=== PATIENT | male | born 1930 | race Caucasian/White ===

== ENCOUNTER 2018-03-01 22:58 | Inpatient (IN) | payer MEDICARE ==
[~2018-03-01] VITALS: Ht 175.3 cm; Wt 81.3 kg
[2018-03-01 23:35] LABS: BASOPHILS % (AUTO) 0.3 % (0.0-2.0); EOSINOPHILS # (AUTO) 0.1 K/uL (0.0-0.7); EOSINOPHILS % (AUTO) 0.9 % (0.0-7.0); HEMATOCRIT 38.2 % (36.7-47.1); HEMOGLOBIN 13.5 g/dL (12.5-16.3); LYMPHOCYTES # (AUTO) 1.6 K/uL (20.0-40.0); LYMPHOCYTES % (AUTO) 24.8 % (20.5-51.5); MEAN CORPUSCULAR HEMOGLOBIN 31.6 uug (23.8-33.4); MEAN CORPUSCULAR HGB CONC 35 g/dL (32.5-36.3); MEAN CORPUSCULAR VOLUME 89.7 fL (73.0-96.2); MONOCYTES # (AUTO) 0.4 K/uL (2.0-10.0); MONOCYTES % (AUTO) 6.6 % (0.0-11.0); NEUTROPHILS # (AUTO) 4.3 K/uL (1.8-8.9); NEUTROPHILS % (AUTO) 67.4 % (38.5-71.5); PLATELET COUNT (AUTO) 156 K/uL (152-348); RED BLOOD CELL COUNT(AUTO) 4.26 MIL/uL (4.06-5.63); WHITE BLOOD COUNT (AUTO) 6.4 K/uL (3.6-10.2)
[2018-03-02] MEDS ORDERED: METF500S7 PO
[2018-03-02] MEDS ORDERED: CARV3.122 PO
[2018-03-02] MEDS ORDERED: CYAN250014 PO
[2018-03-02] MEDS ORDERED: aricept PO
[2018-03-02] MEDS ORDERED: ASCO500C18 PO
[2018-03-02] MEDS ORDERED: IRON18TA PO
[2018-03-02] MEDS ORDERED: MELA3TAB PO
[2018-03-02] MEDS ORDERED: MULT-1196 PO
[2018-03-02] MEDS ORDERED: DUTA0.5C PO
[2018-03-02] MEDS ORDERED: DOCU100C36 PO
[2018-03-02] MEDS ORDERED: POLY17PO4 PO
[2018-03-02] MEDS ORDERED: APIX5TAB PO
[2018-03-02] MEDS ORDERED: UBID50TA3 PO
[2018-03-02] MEDS ORDERED: MECL12.582 PO
[2018-03-02] MEDS ORDERED: VIT1CAPS27 PO
[2018-03-02] MEDS ORDERED: TRAZ-214 PO
[2018-03-02] MEDS ORDERED: CRAN250C PO
[2018-03-02] MEDS ORDERED: ATOR40TA PO
[2018-03-02 00:04] LABS: CARBON DIOXIDE 34 mmol/L (21-32); CHLORIDE 104 mmol/L (98-107); CREATININE 1.2 mg/dL (0.6-1.3); GLUCOSE 130 mg/dL (74-106); POTASSIUM 4.1 mmol/L (3.5-5.1); UREA NITROGEN, BLOOD 26 mg/dL (7-18)
[2018-03-02 00:10] LABS: ALANINE AMINOTRANSFERASE 39 U/L (16-63); ALKALINE PHOSPHATASE 112 U/L (50-136); ASPARTATE AMINOTRANSFERASE 25 U/L (15-37); BILIRUBIN,DIRECT 0.1 mg/dL (0.0-0.2); BILIRUBIN,TOTAL 0.5 mg/dL (0.2-1.0); TOTAL PROTEIN, SERUM 6.3 g/dL (6.4-8.2)
[2018-03-02] MEDS ORDERED: HYDROCODONE/APAP 5-325MG TABLET PO PRN (01:15)
[2018-03-02] MEDS ORDERED: MAGNESIUM HYDROXIDE 30 ML LIQUID UDC PO PRN (01:15)
[2018-03-02] MEDS ORDERED: ONDANSETRON 4 MG/2 ML VIAL IV PRN (01:15)
--- NOTE | 2018-03-02 03:06 | NUR ---
Pt. admitted to TELE , under care of Dr. LIVINGSTON Belongs List completed.
--- NOTE | 2018-03-02 03:30 | NUR ---
[facility] UNDER THE CARE OF DR. LIVINGSTON DX:NSTEMI.CAREGIVER AT BEDSIDE. PT SHOWS NO SIGNS OF DISTRESS. BELONGING LIST DONE. ADMISSION PROCESS AND CARE PLAN INITIATED. RETIREMENT ASSESSMENT DONE.TOOK A PICTURE OF THE RIGHT ARM WITH REDNESS, EXCORIATION AND BRUISE. CALL LIGHT WITHIN REACH. BED ALARM ON AND IN LOW POSITION. SIDE RAILS UP X2. SAFETY AND COMFORT PROVIDED. WILL CONTINUE TO MONITOR.
[2018-03-02 04:00] VITALS: BP 146/67
--- NOTE | 2018-03-02 06:33 | NUR ---
PT SLEPT THROUGHOUT THE SHIFT. PT SHOWS NO SIGNS OF DISTRESS. IV INTACT. PRESCRIBED MEDICATION GIVEN AND PT TOLERATED IT WELL. CALL LIGHT WITHIN REACH. SAFETY AND COMFORT PROVIDED. CAREGIVER AT BEDSIDE. WILL CONTINUE TO MONITOR.
--- NOTE | 2018-03-02 07:25 | NUR ---
Received patient in bed, awake, alert and oriented x1, confused. Denies chest pain or SOB at this time. O2 on at 2LPM via NC. NSR on monitor. Caregiver at bedside. IV site on LAC patent. Fall precaution in place. Will continue to monitor
[2018-03-02] MEDS: MECLIZINE HCL 12.5 MG TABLET PO SCH (08:56)
[2018-03-02] MEDS: DOCUSATE SODIUM 100 MG CAPSULE PO SCH (08:56)
[2018-03-02] MEDS: DUTASTERIDE 0.5 MG CAPSULE PO SCH (08:56)
[2018-03-02] MEDS ORDERED: Medication Not On Formulary EA (Multivit-Min/FA/Lycopen/Lutein (Centrum Silver Men Table PO SCH (09:00)
[2018-03-02] MEDS ORDERED: CYANOCOBALAMIN 2500 MCG PO SCH (09:00)
[2018-03-02] MEDS ORDERED: Medication Not On Formulary EA (Cranberry Extract (Cranberry) 250 MG) PO SCH (09:00)
[2018-03-02] MEDS: FERROUS SULFATE 325 MG TABEC PO SCH (09:00)
[2018-03-02] MEDS ORDERED: CARVEDILOL 3.125 MG TABLET PO SCH ×2 (09:00→17:00)
[2018-03-02] MEDS ORDERED: IRON 65 MG PO SCH (09:00)
[2018-03-02] MEDS ORDERED: Medication Not On Formulary EA (Ascorbic Acid (Vitamin C) 1,000 MG) PO SCH (09:00)
[2018-03-02] MEDS: BETA CAROTENE/VIT C & E/MIN TABLET PO SCH (09:00)
[2018-03-02] MEDS ORDERED: UBIDECARENONE 100 MG PO SCH (09:00)
[2018-03-02] MEDS: CYANOCOBALAMIN 1,000 MCG TABLET PO SCH (09:00)
[2018-03-02] MEDS: ASCORBIC ACID 500 MG TABLET PO SCH (09:00)
[2018-03-02] MEDS ORDERED: Medication Not On Formulary EA (Vit C/Vite Ac/Lut/Copper/Znox (Preservision Lutein Softg PO SCH (09:00)
[2018-03-02] MEDS: MULTIVIT, IRON, MIN NO. 8, FA TABLET PO SCH (09:00)
[2018-03-02] MEDS: MIRALAX 17 GM POWD.PACK PO SCH (09:01)
[2018-03-02] MEDS ORDERED: HEPARIN/D5W DRIP 500 ML IV PRN (09:15)
[2018-03-02] MEDS ORDERED: HEPARIN SODIUM,PORCINE 5,000 UNITS/ML VIAL IVP ONE (10:45)
[2018-03-02] MEDS: ASPIRIN EC 81 MG TABLET.DR PO SCH (10:54)
--- NOTE | 2018-03-02 11:00 | NUR ---
IV Heparin Bolus given at this time. Family at bedside, health education given. Will continue to monitor
[2018-03-02 11:01] VITALS: BP 154/70
--- NOTE | 2018-03-02 11:15 | NUR ---
IV Heparin at 1222.5 units/hr started at this time. Will continue to monitor
--- NOTE | 2018-03-02 13:30 | NUR ---
Dr. Rogers here to see patient, family at bedside. All questions answered.
--- NOTE | 2018-03-02 14:15 | NUR ---
IV Heparin discontinued by Dr. Rogers at this time. Will treat patient medically, continue with Flor
[2018-03-02 15:34] VITALS: BP 157/78
[2018-03-02] MEDS: ACETAMINOPHEN 325 MG TABLET PO PRN (15:45)
--- NOTE | 2018-03-02 16:09 | NUR ---
Patient noted with Temp of 100.8. Cooling measures provided, Tylenol 650 mg PO given. Vitals are otherwise WNL. NSR on monitor. Call placed to Dr. Khan, new orders received. Will continue to monitor
[2018-03-02] MEDS ORDERED: HEPARIN SODIUM,PORCINE 5,000 UNITS/ML VIAL IV PRN (17:00)
[2018-03-02 17:37] LABS: *BILIRUBIN,URIN NEGATIVE (NEGATIVE); *BLOOD, URINE 3+ (NEGATIVE); *CLARITY,URINE CLOUDY (CLEAR); *KETONES,URINE NEGATIVE (NEGATIVE); *PROTEIN,URINE 3+ (NEGATIVE); *UROBILINOGEN,URINE 0.2 E.U./dl (NORMAL); NITRITE, URINE NEGATIVE (NEGATIVE); UGLUCOSE NEGATIVE (NEGATIVE)
[2018-03-02] MEDS: CARVEDILOL 6.25 MG TABLET PO SCH (18:06)
[2018-03-02 18:17] LABS: *COLOR,URINE Brown (YELLOW)
[2018-03-02 18:18] LABS: LEUKOCYTE ESTERASE ,URINE TRACE (NEGATIVE)
[2018-03-02 18:20] LABS: RBC,URINE TNTC /HPF (0-3)
--- NOTE | 2018-03-02 18:23 | NUR ---
End of shift note: Patient is alert and oriented x1, confused. Denies chest pain or SOB at this time. NSR on monitor. IV site on LAC patent. Caregiver at bedside. Temp went down to 97.6. All needs attended and met. Will continue to monitor
--- NOTE | 2018-03-02 19:10 | NUR ---
RECEIVED PT AWAKE, ALERT, AND ORIENTEDX2. PT SHOWS NO SIGNS OF DISTRESS. CAREGIVER AT BEDSIDE.IV INTACT AND PATENT. CALL LIGHT WITHIN REACH. BED ALARM ON AND IN LOW POSITION. WILL CONTINUE TO MONITOR.
[2018-03-02 19:29] VITALS: BP 145/67
[2018-03-02] MEDS: TRAZODONE 100 MG TABLET PO SCH (20:09)
[2018-03-02] MEDS: MELATONIN 3 MG TABLET PO SCH (20:09)
[2018-03-02] MEDS: ATORVASTATIN 40 MG TABLET PO SCH (20:09)
[2018-03-02 23:56] VITALS: BP 107/89
[2018-03-03 03:28] VITALS: BP 157/67
[2018-03-03 06:15] LABS: BASOPHILS % (AUTO) 0.1 % (0.0-2.0); EOSINOPHILS # (AUTO) 0.2 K/uL (0.0-0.7); EOSINOPHILS % (AUTO) 1.9 % (0.0-7.0); HEMATOCRIT 38.5 % (36.7-47.1); HEMOGLOBIN 13.1 g/dL (12.5-16.3); LYMPHOCYTES # (AUTO) 1.1 K/uL (20.0-40.0); MEAN CORPUSCULAR HEMOGLOBIN 31.5 uug (23.8-33.4); MEAN CORPUSCULAR HGB CONC 34 g/dL (32.5-36.3); MEAN CORPUSCULAR VOLUME 92.2 fL (73.0-96.2); MONOCYTES # (AUTO) 0.6 K/uL (2.0-10.0); MONOCYTES % (AUTO) 6.3 % (0.0-11.0); NEUTROPHILS # (AUTO) 7.2 K/uL (1.8-8.9); NEUTROPHILS % (AUTO) 79.7 % (38.5-71.5); PLATELET COUNT (AUTO) 130 K/uL (152-348); RED BLOOD CELL COUNT(AUTO) 4.17 MIL/uL (4.06-5.63); WHITE BLOOD COUNT (AUTO) 9.1 K/uL (3.6-10.2)
--- NOTE | 2018-03-03 06:28 | NUR ---
PT SLEPT THROUGHOUT THE SHIFT..PT SHOWS NO SIGNS AND DISTRESS.IV INTACT AND PATENT.PRESCRIBED MEDICATION GIVEN AND PT TOLERATED IT WELL.CAREGIVER AT BEDSIDE.CALL LIGHT WITHIN REACH. SAFETY AND COMFORT PROVIDED. WILL CONTINUE TO MONITOR.
[2018-03-03 06:32] LABS: CARBON DIOXIDE 34 mmol/L (21-32); CHLORIDE 103 mmol/L (98-107); CHOLESTEROL 99 mg/dL (<200); CREATININE 1.1 mg/dL (0.6-1.3); GLUCOSE 150 mg/dL (74-106); HDL CHOLESTEROL 52 mg/dL (40-60); MAGNESIUM 1.8 mg/dL (1.8-2.4); TRIGLYCERIDES 72 MG/DL (30-150); UREA NITROGEN, BLOOD 21 mg/dL (7-18)
[2018-03-03] MEDS: CARVEDILOL 6.25 MG TABLET PO SCH ×2 (08:35→17:18)
[2018-03-03] MEDS: DOCUSATE SODIUM 100 MG CAPSULE PO SCH (08:36)
[2018-03-03] MEDS: FERROUS SULFATE 325 MG TABEC PO SCH (08:36)
[2018-03-03] MEDS: DUTASTERIDE 0.5 MG CAPSULE PO SCH (08:36)
[2018-03-03] MEDS: MECLIZINE HCL 12.5 MG TABLET PO SCH (08:36)
[2018-03-03] MEDS: ASPIRIN EC 81 MG TABLET.DR PO SCH (08:36)
[2018-03-03] MEDS: MULTIVIT, IRON, MIN NO. 8, FA TABLET PO SCH (08:37)
[2018-03-03] MEDS: BETA CAROTENE/VIT C & E/MIN TABLET PO SCH (08:37)
[2018-03-03] MEDS: ASCORBIC ACID 500 MG TABLET PO SCH (08:37)
[2018-03-03] MEDS: CYANOCOBALAMIN 1,000 MCG TABLET PO SCH (08:37)
[2018-03-03] MEDS: APIXABAN 5 MG TABLET PO SCH ×2 (08:43→17:19)
[2018-03-03] MEDS: MIRALAX 17 GM POWD.PACK PO SCH (08:44)
[2018-03-03 11:04] VITALS: BP 140/60
--- NOTE | 2018-03-03 11:40 | NUR ---
by bedside, caregiver by bedside. Pt is sleeping, arousable when spoken to. Caregiver shaved patient around 1100am, noted patient dozing off around that time.
--- NOTE | 2018-03-03 14:55 | NUR ---
PT, OT and ST evaluation ordered. Dx: NSTEMI aware
[2018-03-03 15:02] VITALS: BP 140/74
--- NOTE | 2018-03-03 15:20 | NUR ---
Per PT: confirmed pt was seen
--- NOTE | 2018-03-03 16:10 | NUR ---
orders: Neurologist consult
--- NOTE | 2018-03-03 16:11 | NUR ---
OT evaluation noted
--- NOTE | 2018-03-03 16:47 | NUR ---
SKY Hairston aware of Neuro consult, ordered CT-head. Dr. Florentino called new orders to cancel CT Head, acknowledge Neuro consult and will be done tomorrow morning
--- NOTE | 2018-03-03 19:10 | NUR ---
RECEIVED PT AWAKE, ALERT, ORIENTEDX2. PT SHOWS NO SIGNS OF DISTRESS. CAREGIVER AT BEDSIDE. IV INTACT. SAFETY AND COMFORT PROVIDED. WILL CONTINUE TO MONITOR.
[2018-03-03] MEDS: Z GUARD REMEDY PASTE 57 GM TUBE TOP PRN (19:13)
--- NOTE | 2018-03-03 19:25 | NUR ---
Caregiver by bedside throughout this shift. No immediate s/sx of SOB or distress. Pt has been compliant with nursing care and medications.
[2018-03-03 19:35] VITALS: BP 147/79
[2018-03-03] MEDS: ATORVASTATIN 40 MG TABLET PO SCH (20:31)
[2018-03-03] MEDS: TRAZODONE 100 MG TABLET PO SCH (20:31)
[2018-03-03] MEDS: MELATONIN 3 MG TABLET PO SCH (20:37)
[2018-03-04] VITALS (7 sets, daily range): BP systolic 125–165; BP diastolic 56–82
[2018-03-04] MEDS: ACETAMINOPHEN 325 MG TABLET PO PRN ×2 (00:28→20:34)
--- NOTE | 2018-03-04 00:54 | NUR ---
AT 0033H PT GOT 99.9 TEMP. COOLING MEASURES DONE AND GAVE TYLENOL TO PREVENT FEVER. CHARGE NURSE AWARE OF THE TEMP OF THE PT. PT SAFETY AND COMFORT PROVIDED. WILL CONTINUE TO MONITOR.
--- NOTE | 2018-03-04 02:20 | NUR ---
NOTIFIED DR. VERO DUARTE WHO WAS THE DOCTOR HEALTHCARE SCIENCE SPECIALIST REGARDING PT HAD AN EPISODE OF V-TACH 8 BEATS AND HEART RATE OF 115. CHARGE NURSE AWARE. ORDERED TO MONITOR THE PTS HEART RYTHM AND CALL HIM IF THERE'S ANOTHER IRREGULAR RYTHM. PT STABLE AND WITH NO ACUTRE DISTRESS. CAREGIVER ALSO OF THE PT ASKING FOR MELATONIN FOR PT BUT SINCE ITS PAST 2 AM ALREADY WE CAN'T GIVE ANY SLEEPING MEDICATION FOR PT.
--- NOTE | 2018-03-04 06:26 | NUR ---
PT SLEPT THROUGHOUT THE SHIFT. CAREGIVER AT BEDSIDE. PT AFEBRILE. PT SHOWS NO SIGNS OF DISTRESS. IV INTACT.PRESCRIBED MEDICATION GIVEN AND PT TOLERATED IT WELL. SAFETY AND COMFORT PROVIDED. WILL CONTINUE TO MONITOR. Addendum: 03/04/18 at 0627 by CORTNEY DENIS RN WRONG PT.
[2018-03-04 07:06] LABS: BASOPHILS % (AUTO) 0.2 % (0.0-2.0); EOSINOPHILS # (AUTO) 0.2 K/uL (0.0-0.7); EOSINOPHILS % (AUTO) 2.7 % (0.0-7.0); HEMATOCRIT 36.6 % (36.7-47.1); LYMPHOCYTES # (AUTO) 1.1 K/uL (20.0-40.0); LYMPHOCYTES % (AUTO) 14.3 % (20.5-51.5); MEAN CORPUSCULAR HGB CONC 36 g/dL (32.5-36.3); MEAN CORPUSCULAR VOLUME 89.9 fL (73.0-96.2); MONOCYTES # (AUTO) 0.7 K/uL (2.0-10.0); MONOCYTES % (AUTO) 8.3 % (0.0-11.0); NEUTROPHILS # (AUTO) 5.9 K/uL (1.8-8.9); NEUTROPHILS % (AUTO) 74.5 % (38.5-71.5); PLATELET COUNT (AUTO) 125 K/uL (152-348); RED BLOOD CELL COUNT(AUTO) 4.07 MIL/uL (4.06-5.63); WHITE BLOOD COUNT (AUTO) 7.9 K/uL (3.6-10.2)
[2018-03-04 07:19] LABS: CARBON DIOXIDE 34 mmol/L (21-32); CHLORIDE 103 mmol/L (98-107); GLUCOSE 150 mg/dL (74-106); PHOSPHOROUS 2.9 mg/dL (2.5-4.9); UREA NITROGEN, BLOOD 26 mg/dL (7-18)
--- NOTE | 2018-03-04 07:45 | NUR ---
Rec'd pt in bed awake, caregiver at bedside. No s/s of acute distress noted. S/P VTach x1 episode during noc shift. No further episode at this time. Tele monitor in place, SR at 64bpm. Per report, afebrile at 98.3. Plan is for d/c to ARU vs SNF. All safety precautions in place. Will continue to monitor for change.
[2018-03-04] MEDS ORDERED: CARVEDILOL 12.5 MG TABLET PO SCH ×2 (08:00→18:00)
[2018-03-04] MEDS ORDERED: CARVEDILOL 6.25 MG TABLET PO SCH (08:00)
[2018-03-04] MEDS: CYANOCOBALAMIN 1,000 MCG TABLET PO SCH (08:41)
[2018-03-04] MEDS: DUTASTERIDE 0.5 MG CAPSULE PO SCH (08:41)
[2018-03-04] MEDS: MECLIZINE HCL 12.5 MG TABLET PO SCH (08:41)
[2018-03-04] MEDS: ASCORBIC ACID 500 MG TABLET PO SCH (08:41)
[2018-03-04] MEDS: FERROUS SULFATE 325 MG TABEC PO SCH (08:41)
[2018-03-04] MEDS: MULTIVIT, IRON, MIN NO. 8, FA TABLET PO SCH (08:41)
[2018-03-04] MEDS: DOCUSATE SODIUM 100 MG CAPSULE PO SCH (08:41)
[2018-03-04] MEDS: ASPIRIN EC 81 MG TABLET.DR PO SCH (08:42)
[2018-03-04] MEDS: APIXABAN 5 MG TABLET PO SCH ×2 (08:43→18:21)
[2018-03-04] MEDS: BETA CAROTENE/VIT C & E/MIN TABLET PO SCH (08:44)
[2018-03-04] MEDS: MIRALAX 17 GM POWD.PACK PO SCH (08:44)
[2018-03-04] MEDS: CARVEDILOL 6.25 MG TABLET PO SCH ×2 (08:53→18:09)
[2018-03-04] MEDS: LISINOPRIL 10 MG TABLET PO SCH (08:53)
--- NOTE | 2018-03-04 09:30 | NUR ---
Pt c/o bilateral eye dryness. No redness/swelling/discharge noted. Relayed to SKY Ewing and obtained T.O for Artificial Tears 1 drop to each eye Q8hrs PRN eye dryness. T.O. read back and verified. Family made aware.
[2018-03-04] MEDS: POLYVINYL ALCOHOL OPHT DROPS 15 ML BOTTLE EACHEYE PRN (10:06)
--- NOTE | 2018-03-04 11:15 | NUR ---
Pt going to radiology dept for Heat CT as ordered for weakness. No s/s of acute distress noted. Caregiver at side.
--- NOTE | 2018-03-04 11:45 | NUR ---
Pt back from CT. No acute distress noted. In bed with eyes closed. All safety precautions in place. Caregiver at bedside.
--- NOTE | 2018-03-04 12:46 | NUR ---
Pt seen and evaluated by ST for upgrade to regular texture diet. Per ST, pt passed.
--- NOTE | 2018-03-04 14:49 | NUR ---
Relayed to Dr. Rogers pt's is requesting for him to update his Certified Surgical Tech/First Assistant Sonido De Oliveira at . Per , he will call him in a bit. and caregiver made aware.
--- NOTE | 2018-03-04 16:10 | NUR ---
Rec'd message from Dr. Rogers that he spoke with Dr. Danielle and updated him with patient's condition. and caregiver made aware.
--- NOTE | 2018-03-04 17:58 | NUR ---
Reported to Dr. Juarez pt with x2 episode of scant bleeding to left nostril. Caregiver not sure if pt scratched inside his nostril. Pt denies scratching. Last episode of nose bleed, BP 125/60. Each episode only lasting for 1-2 mins. Pt on Apixaban 5mg PO BID. Per Dr. Juarez, pt still ok to receive Apixaban as ordered.
--- NOTE | 2018-03-04 19:30 | NUR ---
Received patient in stable condition. No acute distress noted. Pertinent assessment completed. Vital signs within range. A/Ox1 with confusion. customs import specialist at the bedside 24 hours a day. Sinus Fran on tele monitor with HR of 55 to 71. Skin intact. Patient is non ambulatory with severe BLE weakness. Noted with left AC 20G IV site which is locked, patent, & flushing well. Bed in lowest position & locked. Call light within reach of patient. Will continue to monitor through shift.
[2018-03-04] MEDS: TRAZODONE 100 MG TABLET PO SCH (20:34)
[2018-03-04] MEDS: ATORVASTATIN 40 MG TABLET PO SCH (20:34)
[2018-03-04] MEDS: MELATONIN 3 MG TABLET PO SCH (20:35)
[2018-03-05 00:27] VITALS: BP 149/54
[2018-03-05 05:11] VITALS: BP 154/62
[2018-03-05 06:27] LABS: BASOPHILS % (AUTO) 0.7 % (0.0-2.0); EOSINOPHILS # (AUTO) 0.2 K/uL (0.0-0.7); EOSINOPHILS % (AUTO) 3.4 % (0.0-7.0); HEMATOCRIT 35.4 % (36.7-47.1); HEMOGLOBIN 12.3 g/dL (12.5-16.3); LYMPHOCYTES # (AUTO) 1.7 K/uL (20.0-40.0); LYMPHOCYTES % (AUTO) 24.7 % (20.5-51.5); MEAN CORPUSCULAR HEMOGLOBIN 31.5 uug (23.8-33.4); MEAN CORPUSCULAR HGB CONC 35 g/dL (32.5-36.3); MEAN CORPUSCULAR VOLUME 90.7 fL (73.0-96.2); MONOCYTES # (AUTO) 0.7 K/uL (2.0-10.0); MONOCYTES % (AUTO) 10.6 % (0.0-11.0); NEUTROPHILS # (AUTO) 4.2 K/uL (1.8-8.9); NEUTROPHILS % (AUTO) 60.6 % (38.5-71.5); PLATELET COUNT (AUTO) 135 K/uL (152-348); RED BLOOD CELL COUNT(AUTO) 3.91 MIL/uL (4.06-5.63); WHITE BLOOD COUNT (AUTO) 6.9 K/uL (3.6-10.2)
--- NOTE | 2018-03-05 06:43 | NUR ---
Srini slept well during the night. No acute distress noted. Sinus Fran during sleep on tele monitor with lowest HR of 45. outdoor emergency care technician at the bedside all night. All needs attended to promptly. Kept clean, dry, intact. Changed per diaper soiling. Patient to go for MRI at [facility] at 0900. supervisor tellers time at 0800. MRI checklist completed. Family aware. Safety measures maintained. Call light within reach. Will endorse to day shift nurse.
[2018-03-05 07:08] LABS: CARBON DIOXIDE 31 mmol/L (21-32); CHLORIDE 105 mmol/L (98-107); CREATININE 1.2 mg/dL (0.6-1.3); GLUCOSE 142 mg/dL (74-106); POTASSIUM 4.1 mmol/L (3.5-5.1); UREA NITROGEN, BLOOD 28 mg/dL (7-18)
[2018-03-05 07:11] LABS: MAGNESIUM 2.2 mg/dL (1.8-2.4); PHOSPHOROUS 3.9 mg/dL (2.5-4.9)
[2018-03-05] MEDS: CARVEDILOL 6.25 MG TABLET PO SCH ×2 (08:00→17:08)
[2018-03-05] MEDS: ASPIRIN EC 81 MG TABLET.DR PO SCH (08:08)
[2018-03-05] MEDS: DUTASTERIDE 0.5 MG CAPSULE PO SCH (08:08)
[2018-03-05] MEDS: ASCORBIC ACID 500 MG TABLET PO SCH (08:08)
[2018-03-05] MEDS: DOCUSATE SODIUM 100 MG CAPSULE PO SCH (08:08)
[2018-03-05] MEDS: LISINOPRIL 10 MG TABLET PO SCH (08:08)
[2018-03-05] MEDS: BETA CAROTENE/VIT C & E/MIN TABLET PO SCH (08:08)
[2018-03-05] MEDS: MULTIVIT, IRON, MIN NO. 8, FA TABLET PO SCH (08:08)
[2018-03-05] MEDS: FERROUS SULFATE 325 MG TABEC PO SCH (08:08)
[2018-03-05] MEDS: MIRALAX 17 GM POWD.PACK PO SCH (08:09)
[2018-03-05] MEDS: MECLIZINE HCL 12.5 MG TABLET PO SCH (08:09)
[2018-03-05] MEDS: CYANOCOBALAMIN 1,000 MCG TABLET PO SCH (08:09)
[2018-03-05] MEDS: APIXABAN 5 MG TABLET PO SCH ×2 (08:12→17:07)
--- NOTE | 2018-03-05 09:00 | NUR ---
Patient seen by Dr. Gann, notified MD regarding HR of 56 and MD said OK to hold Coreg if HR less than 60.
--- NOTE | 2018-03-05 09:26 | NUR ---
Patient picked up by Amanda via gurney. Patient awake, not in any form of acute distress. He denies any pain or discomfort at this time. Patient accompanied by caregiver.
--- NOTE | 2018-03-05 10:53 | NUR ---
Patient back from [facility], MRI done. Patient remains alert, verbally responsive. No complain of any pain or discomfort.
[2018-03-05 11:06] VITALS: BP 104/62
[2018-03-05 15:11] VITALS: BP 140/61
[2018-03-05 19:00] VITALS: BP 157/62
--- NOTE | 2018-03-05 20:08 | NUR ---
Received patient in bed, awake, alert to self. Confused and disoriented to place, date, time, and reasons for hospitalization. 1:1 sitter at the bedside Leah (WEATHER REPORTER) monitoring for safety and high fall risk. Compliant with medication. Will continue to monitor behavior and medication effectiveness throughout shift.
[2018-03-05] MEDS: TRAZODONE 100 MG TABLET PO SCH (21:09)
[2018-03-05] MEDS: ATORVASTATIN 40 MG TABLET PO SCH (21:10)
[2018-03-05] MEDS: MELATONIN 3 MG TABLET PO SCH (21:12)
[2018-03-06] VITALS: BP 157/82
[2018-03-06 04:00] VITALS: BP 165/64
[2018-03-06 04:23] VITALS: BP 142/76
--- NOTE | 2018-03-06 06:39 | NUR ---
Pt resting comfortably on bed, pleasantly confused, redirection provided. With law office receptionist at bedside. no signs of discomfort noted at this time. on Tele Sinus Rhythm with HR of 63. IV site on LAC, patent and intact. Kept pt safe and comfortable at all times. All needs anticipated and attended.
[2018-03-06] MEDS: LISINOPRIL 10 MG TABLET PO SCH (08:41)
[2018-03-06] MEDS: DOCUSATE SODIUM 100 MG CAPSULE PO SCH (08:41)
[2018-03-06] MEDS: BETA CAROTENE/VIT C & E/MIN TABLET PO SCH (08:41)
[2018-03-06] MEDS: ASCORBIC ACID 500 MG TABLET PO SCH (08:41)
[2018-03-06] MEDS: DUTASTERIDE 0.5 MG CAPSULE PO SCH (08:42)
[2018-03-06] MEDS: MULTIVIT, IRON, MIN NO. 8, FA TABLET PO SCH (08:42)
[2018-03-06] MEDS: FERROUS SULFATE 325 MG TABEC PO SCH (08:42)
[2018-03-06] MEDS: CYANOCOBALAMIN 1,000 MCG TABLET PO SCH (08:42)
[2018-03-06] MEDS: MECLIZINE HCL 12.5 MG TABLET PO SCH (08:42)
[2018-03-06] MEDS: MIRALAX 17 GM POWD.PACK PO SCH (08:43)
[2018-03-06] MEDS: POLYVINYL ALCOHOL OPHT DROPS 15 ML BOTTLE EACHEYE PRN (08:44)
[2018-03-06] MEDS: CARVEDILOL 6.25 MG TABLET PO SCH ×2 (08:52→17:06)
[2018-03-06] MEDS: ASPIRIN EC 81 MG TABLET.DR PO SCH (08:53)
[2018-03-06] MEDS: APIXABAN 5 MG TABLET PO SCH ×2 (08:53→17:07)
[2018-03-06 11:05] VITALS: BP 161/72
--- NOTE | 2018-03-06 14:30 | NUR ---
Neuro Surgeon nurse practitioner Ramu was contacted via charge nurse phone. There has been no response at this time. MD and charge nurse notified.
[2018-03-06 15:11] VITALS: BP 167/70
[2018-03-06] MEDS ORDERED: AMLODIPINE 10 MG TABLET PO SCH (15:45)
[2018-03-06] MEDS: AMLODIPINE 5 MG TABLET PO SCH ×2 (15:51→20:26)
--- NOTE | 2018-03-06 18:20 | NUR ---
reassessment of patients bp after MD order of amlodipine 5mg to decrease blood pressure. Medication was effective and patients blood pressure resulted in 153/77, and heart rate of 66. patient remains stable and asymptomatic.
--- NOTE | 2018-03-06 18:20 | NUR ---
patient remains in stable condition. patient blood pressure fluctuates. patients had a BP of 167/70 and MD was notified. MD ordered amlodipine 5mg.
--- NOTE | 2018-03-06 18:28 | NUR ---
patient is resting comfortable in bed. patient denies any pain or discomfort, patient is alert and oriented x2. patient is compliant with medication treatment and regimen. patient had nursing program chair from home who takes of care of him around the clock. patient produce bowel movement that was within normal limits. patients blood pressure fluctuates but is being managed by prescribed medication by MD as ordered.
--- NOTE | 2018-03-06 19:10 | NUR ---
RECEIVED PT ASLEEP ON BED, NO SIGNS OF RESPIRATORY DISTRESS NOTED AT THIS TIME. ON O2 2L VIA NC, TOLERATING WELL. WITH ADVERTISING DIRECTOR AT BEDSIDE. IV SITE ON LAC, PATENT AND INTACT. SAFETY MEASURES INITIATED, CALL WORTHY WITHIN REACH.
[2018-03-06 20:03] VITALS: BP 124/68
[2018-03-06] MEDS: MELATONIN 3 MG TABLET PO SCH (20:20)
[2018-03-06] MEDS: ATORVASTATIN 40 MG TABLET PO SCH (20:20)
[2018-03-06] MEDS: TRAZODONE 100 MG TABLET PO SCH (20:20)
[2018-03-07 00:04] VITALS: BP 101/56
[2018-03-07 04:03] VITALS: BP 147/66
--- NOTE | 2018-03-07 06:29 | NUR ---
PT SLEPT THROUGHOUT THE SHIFT, RESPONSIVE TO VERBAL AND TACTILE STIMULI. NO SIGNS OF DISCOMFORT AT THIS TIME. AQUATIC ECOLOGIST AT BEDSIDE. IV SITE ON LAC, PATENT AND INTACT. PT HAS BEEN COMPLIANT WITH CARE. ON TELE SINUS RHYTHM WITH HR OF 65. ON O2 2LPM VIA NC, TOLERATED WELL. KEPT PT SAFE AND COMFORTABLE AT ALL TIMES. ALL NEEDS ANTICIPATED AND ATTENDED. CALL WORTHY WITHIN REACH.
[2018-03-07] MEDS: CARVEDILOL 6.25 MG TABLET PO SCH ×2 (08:00→17:02)
[2018-03-07] MEDS: CYANOCOBALAMIN 1,000 MCG TABLET PO SCH (08:08)
[2018-03-07] MEDS: APIXABAN 5 MG TABLET PO SCH ×2 (08:08→17:03)
[2018-03-07] MEDS: BETA CAROTENE/VIT C & E/MIN TABLET PO SCH (08:09)
[2018-03-07] MEDS: MIRALAX 17 GM POWD.PACK PO SCH (08:09)
[2018-03-07] MEDS: AMLODIPINE 5 MG TABLET PO SCH ×2 (08:09→20:56)
[2018-03-07] MEDS: ASPIRIN EC 81 MG TABLET.DR PO SCH (08:09)
[2018-03-07] MEDS: FERROUS SULFATE 325 MG TABEC PO SCH (08:09)
[2018-03-07] MEDS: DUTASTERIDE 0.5 MG CAPSULE PO SCH (08:10)
[2018-03-07] MEDS: ASCORBIC ACID 500 MG TABLET PO SCH (08:10)
[2018-03-07] MEDS: DOCUSATE SODIUM 100 MG CAPSULE PO SCH (08:10)
[2018-03-07] MEDS: MECLIZINE HCL 12.5 MG TABLET PO SCH (08:10)
[2018-03-07] MEDS: MULTIVIT, IRON, MIN NO. 8, FA TABLET PO SCH (08:10)
[2018-03-07] MEDS: LISINOPRIL 10 MG TABLET PO SCH (08:10)
[2018-03-07] MEDS: POLYVINYL ALCOHOL OPHT DROPS 15 ML BOTTLE EACHEYE PRN ×2 (08:10→20:46)
--- NOTE | 2018-03-07 08:25 | NUR ---
upon assessment of vitals signs before administration of medications. Patients heart rate was below 60. Patient has a heart rate of 52. Medications of carvedilol 6.25 mg was held.
[2018-03-07 11:48] VITALS: BP 124/63
--- NOTE | 2018-03-07 14:45 | NUR ---
neuro surgeon nurse practitioner called and left a message in the morning and now. MD and supervisor knitting notified.
[2018-03-07 16:10] VITALS: BP 111/72
--- NOTE | 2018-03-07 18:19 | NUR ---
PATIENT IS RESTING IN BED COMFORTABLE WITH ART MUSEUM AIDE AT BEDSIDE. PATIENT IS IN STABLE CONDITION AND DENIES ANY PAIN/DISCOMFORT. PATIENT SHOWS NO SIGNS/SYMPTOMS OF RESPIRATORY DISTRESS. PATIENT IS COMPLIANT WITH MEDICATION TREATMENT AND REGIMEN. PATIENTS BLOOD PRESSURE REMAINS STABLE. EDUCATED PATIENT TO DRINK MORE FLUIDS TO PREVENT DEHYDRATION. PATIENT SLEPT INTERMITTENTLY THROUGH THE SHIFT. WILL CONTINUE TO MONITOR CLOSELY
--- NOTE | 2018-03-07 20:15 | NUR ---
Received pt awake in bed. Caregiver at bedside for safety. Reviewed plan of care with pt. Pt is alert and oriented x2. O2 sat 96% via 2L NC. Pt has no complaints of chest pain or SOB at this time. Aware that pt has episodes of restlessness and agitation. Safety precautions implemented at all times. Call light within reach. Aware of follow up with neuro surgeon Will continue to monitor and carry out orders.
[2018-03-07 20:17] VITALS: BP 102/49
[2018-03-07] MEDS: TRAZODONE 100 MG TABLET PO SCH (20:40)
[2018-03-07] MEDS: MELATONIN 3 MG TABLET PO SCH (20:40)
[2018-03-07] MEDS: ATORVASTATIN 40 MG TABLET PO SCH (20:40)
[2018-03-08 05:15] VITALS: BP 107/65
--- NOTE | 2018-03-08 06:54 | NUR ---
Pt slept well throughout the night. Easily arousable during initial rounds. Pt has episodes of agitation when aroused. Caregiver at bedside. BP controlled. Kept pt dry and clean. Safety precautions maintained at all times. Comfort measures provided. Call light within reach. Will endorse continuity of care to day shift nurse.
--- NOTE | 2018-03-08 08:30 | NUR ---
AWAKE ORTX2 COOPERATE WELL NO CHEST PAIN OR SOB VS TAKEN STABLE EAT BREAKFAST WELL GUN REPAIR CLERK AT BEDSIDE RESTING IN BED WITH CALL LIGHT IN REACH AND REMIND TO CALL WHEN NEED
[2018-03-08] MEDS: FERROUS SULFATE 325 MG TABEC PO SCH (08:38)
[2018-03-08] MEDS: MECLIZINE HCL 12.5 MG TABLET PO SCH (08:39)
[2018-03-08] MEDS: CYANOCOBALAMIN 1,000 MCG TABLET PO SCH (08:39)
[2018-03-08] MEDS: DUTASTERIDE 0.5 MG CAPSULE PO SCH (08:39)
[2018-03-08] MEDS: BETA CAROTENE/VIT C & E/MIN TABLET PO SCH (08:39)
[2018-03-08] MEDS: ASPIRIN EC 81 MG TABLET.DR PO SCH (08:39)
[2018-03-08] MEDS: MULTIVIT, IRON, MIN NO. 8, FA TABLET PO SCH (08:40)
[2018-03-08] MEDS: DOCUSATE SODIUM 100 MG CAPSULE PO SCH (08:40)
[2018-03-08] MEDS: AMLODIPINE 5 MG TABLET PO SCH ×2 (08:40→21:06)
[2018-03-08] MEDS: ASCORBIC ACID 500 MG TABLET PO SCH (08:41)
[2018-03-08] MEDS: MIRALAX 17 GM POWD.PACK PO SCH (08:43)
[2018-03-08] MEDS: APIXABAN 5 MG TABLET PO SCH ×2 (08:43→16:56)
[2018-03-08] MEDS: CARVEDILOL 6.25 MG TABLET PO SCH ×2 (08:44→16:55)
[2018-03-08] MEDS: LISINOPRIL 10 MG TABLET PO SCH (08:45)
--- NOTE | 2018-03-08 10:00 | NUR ---
DR BETSY CABRERA REGARDING PHYSICAL THERAPY WANT TO KNOW ORDER FOR EXCERCISE /OOB PERMITTION FROM MD AND MESSAGE LEFT
--- NOTE | 2018-03-08 11:00 | NUR ---
DR ART TSE WAS INFORM OF ARU TRANSFER WAS HOLD BECAUSE OF NEED ORDER FROM NEURO SURGEON STATE HE WILL CONTACT MD HIMSELF AND THEY WILL COME TODAY
[2018-03-08 11:48] VITALS: BP 109/56
[2018-03-08 16:00] VITALS: BP 115/50
--- NOTE | 2018-03-08 17:00 | NUR ---
DR MATA CALL REGARDING NO NEURO SURG MD SEE PATIENT TODAY AND MESSAGE LEFT
--- NOTE | 2018-03-08 17:15 | NUR ---
MERNA NEWSPAPER PHOTOGRAPHER FOR [facility] YAN CALL AND RESULT OF MRI OF SPINE SENT TO HIM REQUEST
--- NOTE | 2018-03-08 19:10 | NUR ---
RECEIVED PT AWAKE ON BED, DENIES ANY DISCOMFORT OR PAIN AT THIS TIME. AGENCY OWNER AT BEDSIDE. IV SITE ON RFA, PATENT AND INTACT. SAFETY MEASURES INITIATED, CALL WORTHY WITHIN REACH.
[2018-03-08 20:00] VITALS: BP 134/52
[2018-03-08] MEDS: ATORVASTATIN 40 MG TABLET PO SCH (21:06)
[2018-03-08] MEDS: MELATONIN 3 MG TABLET PO SCH (21:06)
[2018-03-08] MEDS: TRAZODONE 100 MG TABLET PO SCH (21:07)
--- NOTE | 2018-03-08 21:40 | NUR ---
RECEIVED CALL FROM MERNA GARCIA NP. GARMENT LINER MADE AWARE OF CURRENT LAB RESULTS. NEW ORDER RECEIVED, MRI OF THE LUMBAR SPINE WITHOUT CONTRAST. ORDERS READ BACK AND CARRIED OUT. INFORMED GARMENT LINER OF PT'S CONCERNS AND PROVIDED SPOUSE'S PHONE NUMBER. PER GARMENT LINER, A CALL WILL BE MADE BY HIM TO EXPLAIN PLAN OF CARE.
[2018-03-09 04:00] VITALS: BP 143/61
--- NOTE | 2018-03-09 07:15 | NUR ---
PT ON BED, NO SIGNS OF DISCOMFORT NOTED AT THIS TIME. IV SITE ON LFA, PATENT AND INTACT. WITH NETWORK ENGINEER AT BEDSIDE. SKIN CARE AND PERICARE PROVIDED. TURNED AND REPOSITIONED Q2H. ALL NEEDS ANTICIPATED AND MET. SAFE ENVIRONMENT MAINTAINED AT ALL TIMES, PLACED CALL WORTHY WITHIN REACH.
--- NOTE | 2018-03-09 08:00 | NUR ---
AWAKE ORT X1 ,FORGETFUL NO SOB OR PAIN ON ASPIRATION AND FALL PRECAUTION LAY BROTHER AT BEDSIDE AND BED ALARM MAPPING TECHNICIAN LIGHT IN REACH
[2018-03-09] MEDS: MIRALAX 17 GM POWD.PACK PO SCH (08:39)
[2018-03-09] MEDS: FERROUS SULFATE 325 MG TABEC PO SCH (08:40)
[2018-03-09] MEDS: ASPIRIN EC 81 MG TABLET.DR PO SCH (08:40)
[2018-03-09] MEDS: CYANOCOBALAMIN 1,000 MCG TABLET PO SCH (08:40)
[2018-03-09] MEDS: DOCUSATE SODIUM 100 MG CAPSULE PO SCH (08:40)
[2018-03-09] MEDS: ASCORBIC ACID 500 MG TABLET PO SCH (08:40)
[2018-03-09] MEDS: MULTIVIT, IRON, MIN NO. 8, FA TABLET PO SCH (08:40)
[2018-03-09] MEDS: BETA CAROTENE/VIT C & E/MIN TABLET PO SCH (08:40)
[2018-03-09] MEDS: MECLIZINE HCL 12.5 MG TABLET PO SCH (08:40)
[2018-03-09] MEDS: LISINOPRIL 10 MG TABLET PO SCH (08:41)
[2018-03-09] MEDS: DUTASTERIDE 0.5 MG CAPSULE PO SCH (08:41)
[2018-03-09] MEDS: CARVEDILOL 6.25 MG TABLET PO SCH ×2 (08:41→17:26)
[2018-03-09] MEDS: AMLODIPINE 5 MG TABLET PO SCH ×2 (08:41→20:16)
[2018-03-09] MEDS: Z GUARD REMEDY PASTE 57 GM TUBE TOP PRN (08:42)
[2018-03-09] MEDS: APIXABAN 5 MG TABLET PO SCH ×2 (08:46→17:27)
--- NOTE | 2018-03-09 09:00 | NUR ---
PATIENT WAS CALL TO COMPLETE MRI CHECK LIST PRIOR GO TO MRI OF SPINE TODAY STATE SHE WILL COME TO SIGNS IT
--- NOTE | 2018-03-09 10:00 | NUR ---
PATYIENT CAME AND STATE SHE WANT TO MOVE PATIENT TO ANOTHER HOSPITAL / LINE FISHER WAS INFORM AND SPEAK WITH PATIENT AND REFUSED TO GO FOR MRI TODAY CHARGE NURSE WAS INFORM OF SITUATION
[2018-03-09 11:16] VITALS: BP 131/62
--- NOTE | 2018-03-09 13:30 | NUR ---
OOB AMBULATE USE FWW GEN WEAK AND ASSIST UP IN W/C NO PAIN FAMILY AT BEDSIDE
--- NOTE | 2018-03-09 14:00 | NUR ---
FACILITIES MAINTENANCE WORKER WORKING ON TRANSFER TO [facility] IF BED AVAILABLE PT WAS INFORM ,AWARE OF SITUATION
[2018-03-09 15:20] VITALS: BP 120/50
--- NOTE | 2018-03-09 17:30 | NUR ---
STABLE HEMODYNAMIC STATUS NO ACUTE DISTRESS ,PAIN UNDER CONTROL EAT WELL SAFETY MEASURE PROVIDED [employer] NETWORK ARCHITECT AT BEDSIDE AND CALL LIGHT IN REACH
--- NOTE | 2018-03-09 19:20 | NUR ---
RECEIVED PATIENT LYING IN BED. AWAKE ALERT AND ORIENTED X1, SOME CONFUSION. IN NO ACUTE DISTRESS. IV SITE ON LEFT FOREARM INTACT AND PATENT. O2 SAT AT 99% ON RA. PRIVATE CAREGIVER AT BEDSIDE. SAFETY MEASURE INITIATED AND CALL WORTHY WITHIN REACH.
[2018-03-09] MEDS: ATORVASTATIN 40 MG TABLET PO SCH (20:16)
[2018-03-09] MEDS: TRAZODONE 100 MG TABLET PO SCH (20:16)
[2018-03-09] MEDS: MELATONIN 3 MG TABLET PO SCH (20:24)
[2018-03-09 20:34] VITALS: BP 149/66
--- NOTE | 2018-03-10 06:18 | NUR ---
ALERT AND ORIENTED X1, MAINLY CONFUSED. NO SIGN OR SYMPTOMS OF PAIN OR DISCOMFORT. IN NO ACUTE DISTRESS. NO SOB NOTED. IV SITE ON LEFT FOREARM INTACT AND PATENT. PRIVATE CAREGIVER AT BEDSIDE. NEEDS ASSESSED AND ATTENDED TO. SAFETY MEASURE MAINTAINED AND CALL WORTHY WITHIN REACH.
[2018-03-10 06:25] LABS: BASOPHILS # (AUTO) 0.1 K/uL (0.0-8.0); BASOPHILS % (AUTO) 0.8 % (0.0-2.0); EOSINOPHILS # (AUTO) 0.2 K/uL (0.0-0.7); EOSINOPHILS % (AUTO) 3.2 % (0.0-7.0); HEMATOCRIT 32.9 % (36.7-47.1); HEMOGLOBIN 11.5 g/dL (12.5-16.3); LYMPHOCYTES # (AUTO) 1.8 K/uL (20.0-40.0); LYMPHOCYTES % (AUTO) 24.9 % (20.5-51.5); MEAN CORPUSCULAR HEMOGLOBIN 31.3 uug (23.8-33.4); MEAN CORPUSCULAR HGB CONC 35 g/dL (32.5-36.3); MEAN CORPUSCULAR VOLUME 89.4 fL (73.0-96.2); MONOCYTES # (AUTO) 0.6 K/uL (2.0-10.0); MONOCYTES % (AUTO) 7.9 % (0.0-11.0); NEUTROPHILS # (AUTO) 4.7 K/uL (1.8-8.9); NEUTROPHILS % (AUTO) 63.2 % (38.5-71.5); PLATELET COUNT (AUTO) 243 K/uL (152-348); RED BLOOD CELL COUNT(AUTO) 3.68 MIL/uL (4.06-5.63); WHITE BLOOD COUNT (AUTO) 7.4 K/uL (3.6-10.2)
[2018-03-10 06:50] LABS: ALANINE AMINOTRANSFERASE 42 U/L (16-63); ALKALINE PHOSPHATASE 96 U/L (50-136); ASPARTATE AMINOTRANSFERASE 23 U/L (15-37); BILIRUBIN,TOTAL 0.6 mg/dL (0.2-1.0); CARBON DIOXIDE 30 mmol/L (21-32); CHLORIDE 106 mmol/L (98-107); CREATININE 1.1 mg/dL (0.6-1.3); GLUCOSE 179 mg/dL (74-106); MAGNESIUM 2.1 mg/dL (1.8-2.4); PHOSPHOROUS 3.1 mg/dL (2.5-4.9); TOTAL PROTEIN, SERUM 6.2 g/dL (6.4-8.2); UREA NITROGEN, BLOOD 33 mg/dL (7-18)
--- NOTE | 2018-03-10 07:15 | NUR ---
PATIENT RECEIVED ON BED AWAKE, CAREGIVER AT BEDSIDE NO ACUTE DISTRESS NOTED. IV ACCESS ON LFA #20 HL INTACT AND PATENT. NO COMPLAINTS OF PAIN/DISCOMFORT AT THIS TIME. CALL LIGHT WITHIN REACH. WILL COTNINUE TO MONITOR CLOSELY.
[2018-03-10] MEDS: CARVEDILOL 6.25 MG TABLET PO SCH ×2 (08:00→17:06)
[2018-03-10] MEDS: MULTIVIT, IRON, MIN NO. 8, FA TABLET PO SCH (08:45)
[2018-03-10] MEDS: ASCORBIC ACID 500 MG TABLET PO SCH (08:45)
[2018-03-10] MEDS: DUTASTERIDE 0.5 MG CAPSULE PO SCH (08:45)
[2018-03-10] MEDS: CYANOCOBALAMIN 1,000 MCG TABLET PO SCH (08:45)
[2018-03-10] MEDS: MECLIZINE HCL 12.5 MG TABLET PO SCH (08:48)
[2018-03-10] MEDS: DOCUSATE SODIUM 100 MG CAPSULE PO SCH (08:48)
[2018-03-10] MEDS: BETA CAROTENE/VIT C & E/MIN TABLET PO SCH (08:48)
[2018-03-10] MEDS: ASPIRIN EC 81 MG TABLET.DR PO SCH (08:48)
[2018-03-10] MEDS: APIXABAN 5 MG TABLET PO SCH ×2 (08:49→17:16)
[2018-03-10] MEDS: MIRALAX 17 GM POWD.PACK PO SCH (08:50)
[2018-03-10] MEDS: FERROUS SULFATE 325 MG TABEC PO SCH (08:50)
[2018-03-10] MEDS: LISINOPRIL 10 MG TABLET PO SCH (09:00)
[2018-03-10] MEDS: AMLODIPINE 5 MG TABLET PO SCH ×2 (09:00→20:12)
--- NOTE | 2018-03-10 09:00 | NUR ---
BP 119/52 HR 61, COREG HELD. WILL RECHECK BP IN 30 MINS.
--- NOTE | 2018-03-10 09:30 | NUR ---
BP RECHECKED 129/58 HR 60, NORVASC AND LISINOPRIL HELD. WILL CONTINUE TO MONITOR CLOSELY.
[2018-03-10 11:08] VITALS: BP 134/53
[2018-03-10] MEDS ORDERED: DEXTROSE 50% 50 ML DISP.SYRIN IV PRN (11:45)
--- NOTE | 2018-03-10 12:00 | NUR ---
A1C RESULT 7.2, DR. KURTZ W/ NEW ORDERS, NOTED AND CARRIED OUT.
[2018-03-10 15:22] VITALS: BP 104/43
[2018-03-10] MEDS: BLOOD SUGAR DIAGNOSTIC 1 EACH STRIP VI SCH ×2 (16:21→20:11)
[2018-03-10] MEDS: INSULIN REGULAR, HUMAN 300 UNIT/3 ML VIAL SQ PRN (16:22)
[2018-03-10] MEDS ORDERED: INFLUENZA VACCINE 2018-2019 0.5 ML DISP.SYRIN IM ONE (16:30)
[2018-03-10] MEDS ORDERED: PNEUMOCOCCAL 23-VAL P-SAC VAC 0.5 ML VIAL IM ONE (16:30)
--- NOTE | 2018-03-10 17:11 | NUR ---
03/10/2018 @1335 Received a call from [facility] Transfer [place], a bed is pending on a discharge from [facility]. Upon discharge from the pending room at [facility], a wireless sales representative will call the nurse for nursing report. [facility] is responsible for transportation. Marie is aware of discharge plans. Cleopatra MCKEE, 03/10/1650 Informed and updated Chantell () several times throughout the day about the plan of discharge. As of now, waiting for [facility] to call us back with an available bed. All requests have been followed up with [facility]. Transportation needs to be set up once a call is received from [facility]. Marie MCKEE and charge nurse aware of discharge plans and that the wants to be notified when the patient gets transferred. Reinaldo Fowler (son-in-law) [phone] Sanjeev Erin (daughter) [phone] [facility] [phone]
--- NOTE | 2018-03-10 18:42 | NUR ---
PATIENT IN BED RESTING. NO SIGNIFICANT CHANGE THROUOUT SHIFT CAREGIVER STILL AT BEDSIDE. FLU VACCINE ADMINISTERED ON LEFT DELTOID AND PNEUMOCOCCAL VACCINE ADMINISTERED ON RIGHT DELTOID, WELL TOLERATED. IV ACCESS STILL INTACT AND PATENT. LAST BLOOD GLUCOSE WAS 302, 8 UNITS OF INSULIN GIVEN. ALL NEEDS ATTENDED AND ANTICIPATED. CALLL LIGHT WITHIN REACH
--- NOTE | 2018-03-10 19:20 | NUR ---
RECEIVED PATIENT LYING IN BED. AWAKE ALERT AND ORIENTED X1 ONLY. IN NO ACUTE DISTRESS. DENIES ANY PAIN OR SOB WHEN ASKED. IV SITE ON LEFT FOREARM INTACT AND PATENT. PRIVATE CAREGIVER AT BEDSIDE. SAFETY MEASURE INITIATED AND CALL WORTHY WITHIN REACH.
[2018-03-10 19:25] VITALS: BP 143/64
[2018-03-10] MEDS: MELATONIN 3 MG TABLET PO SCH (20:11)
[2018-03-10] MEDS: TRAZODONE 100 MG TABLET PO SCH (20:11)
[2018-03-10] MEDS: ATORVASTATIN 40 MG TABLET PO SCH (20:11)
[2018-03-10] MEDS ORDERED: INSULIN GLARGINE,HUM 300 UNITS/3 ML CARTRIDGE SQ SCH (21:00)
[2018-03-11 03:31] VITALS: BP 158/71
--- NOTE | 2018-03-11 05:54 | NUR ---
Telephone call from RAMAKRISHNA Newell, provided information needed. Patient to be transferred to [facility] today. Reece stated he will call Transfer center and to wait for Transfer center to call [facility] back.
--- NOTE | 2018-03-11 06:04 | NUR ---
ALERT AND ORIENTED X1, WITH PERIODS OF CONFUSION. NO SIGN OR SYMPTOMS OF PAIN OR DISCOMFORT. IN NO ACUTE DISTRESS. NO SOB NOTED. IV SITE ON LEFT FOREARM INTACT AND PATENT. PRIVATE CAREGIVER AT BEDSIDE. NEEDS ASSESSED AND ATTENDED TO. SAFETY MEASURE MAINTAINED AND CALL WORTHY WITHIN REACH.
[2018-03-11] MEDS: BLOOD SUGAR DIAGNOSTIC 1 EACH STRIP VI SCH (06:30)
--- NOTE | 2018-03-11 06:58 | NUR ---
TELEPHONE CALL TO PATIENT MARISEL AND PROVIDED CONSENT TO TRANSFER PATIENT TO [facility]. CONSENT GIVEN TO THIS NURSE AND WITNESS BY CHARGE NURSE TRUNG. TELEPHONE CALL TO [facility] NURSE/ANDRÉS, GAVE REPORT ON PATIENT CURRENT CONDITION AND H&P AND STATES UNDERSTANDING.
--- NOTE | 2018-03-11 07:15 | NUR ---
PATIENT RECEIVED ON BED AWAKE AAOX1-2, CAREGIVER AT BEDSIDE NO ACUTE DISTRESS NOTED. BLOOD SUGAR THIS AM 149, WILL ADMINISTER INSULIN. IV ACCESS ON LFA #20 HL INTACT AND PATENT. NO COMPLAINTS OF PAIN/DISCOMFORT AT THIS TIME. CALL LIGHT WITHIN REACH. WILL CONTINUE TO MONITOR CLOSELY.
[2018-03-11] MEDS: INSULIN REGULAR, HUMAN 300 UNIT/3 ML VIAL SQ PRN (07:49)
[2018-03-11] MEDS: CARVEDILOL 6.25 MG TABLET PO SCH (08:00)
[2018-03-11] MEDS: MECLIZINE HCL 12.5 MG TABLET PO SCH (08:11)
[2018-03-11] MEDS: CYANOCOBALAMIN 1,000 MCG TABLET PO SCH (08:11)
[2018-03-11] MEDS: BETA CAROTENE/VIT C & E/MIN TABLET PO SCH (08:12)
[2018-03-11] MEDS: LISINOPRIL 10 MG TABLET PO SCH (08:12)
[2018-03-11] MEDS: ASCORBIC ACID 500 MG TABLET PO SCH (08:12)
[2018-03-11] MEDS: AMLODIPINE 5 MG TABLET PO SCH (08:12)
[2018-03-11] MEDS: DUTASTERIDE 0.5 MG CAPSULE PO SCH (08:12)
[2018-03-11] MEDS: FERROUS SULFATE 325 MG TABEC PO SCH (08:12)
[2018-03-11] MEDS: DOCUSATE SODIUM 100 MG CAPSULE PO SCH (08:13)
[2018-03-11] MEDS: MULTIVIT, IRON, MIN NO. 8, FA TABLET PO SCH (08:13)
[2018-03-11] MEDS: ASPIRIN EC 81 MG TABLET.DR PO SCH (08:13)
[2018-03-11] MEDS: APIXABAN 5 MG TABLET PO SCH (08:14)
[2018-03-11] MEDS: MIRALAX 17 GM POWD.PACK PO SCH (08:27)
--- NOTE | 2018-03-11 09:15 | NUR ---
PATIENT TRANSFERRED TO [facility] IN STABLE CONDITION REPORT GIVEN BY JESUS MCKEE (NIGHTSHIFT) TO RADHA MCKEE, PATIENT WILL GO TO ROOM 4432 BED, TRANSFER PAPERS GIVEN AND EXPLAINED. LEFT HOSPITAL VIA AMBULANCE
[2018-03-11 11:25] VITALS: BP 104/65
== END 2018-03-11 16:12 | disposition short-term general hospital (02) | DRG 280 ==
LOC: ER 22:59 → TELE 03-02 02:51 → MED 03-07 09:47
PROVIDERS: ADMIT Internal Medicine
DX: I11.0 Hypertensive heart disease with heart failure (principal); I21.A1 Myocardial infarction type 2; N17.0 Acute kidney failure with tubular necrosis; G91.0 Communicating hydrocephalus; S32.039A Unspecified fracture of third lumbar vertebra, initial encounter for closed fracture; E44.0 Moderate protein-calorie malnutrition; I50.33 Acute on chronic diastolic (congestive) heart failure; I42.1 Obstructive hypertrophic cardiomyopathy; W06.XXXA Fall from bed, initial encounter; Y93.89 Activity, other specified; Y92.013 Bedroom of single-family (private) house as the place of occurrence of the external cause; Z86.73 Personal history of transient ischemic attack (TIA), and cerebral infarction without residual deficits; Z79.84 Long term (current) use of oral hypoglycemic drugs; Z79.01 Long term (current) use of anticoagulants; I48.0 Paroxysmal atrial fibrillation; N40.0 Benign prostatic hyperplasia without lower urinary tract symptoms; M21.372 Foot drop, left foot; M43.22 Fusion of spine, cervical region; M51.35 Other intervertebral disc degeneration, thoracolumbar region; E11.65 Type 2 diabetes mellitus with hyperglycemia; J33.0 Polyp of nasal cavity; Z68.26 Body mass index [BMI] 26.0-26.9, adult; G30.9 Alzheimer's disease, unspecified; F02.80 Dementia in other diseases classified elsewhere, unspecified severity, without behavioral disturbance, psychotic disturbance, mood disturbance, and anxiety; Z74.09 Other reduced mobility; Z90.79 Acquired absence of other genital organ(s)
CPT/HCPCS: 36415; 70030-TC; 70450; 70551; 71045; 72125; 72170; 73502; 83735; 84100; 85025; 85730; 87086; 90686; 90732; 92523; 92610; 93005; 93307; 97110; 97112; 97116; 97165; 97530; A4663; C1758; G0378; J1644; J1815; J8597